=== PATIENT | female | born 1995 | race Caucasian/White ===

== ENCOUNTER 2021-10-27 14:16 | Inpatient (IN) | payer OTHER ==
[2021-10-27] MEDS ORDERED: CARBOPROST TROMETHAMINE 250 MCG/ML 1 ML AMP IM PRN (15:53)
[2021-10-27] MEDS ORDERED: LIDOCAINE 0.5% (PF) 5 MG/ML (50 ML SDV) SQ PRN (15:53)
[2021-10-27] MEDS ORDERED: OXYTOCIN 10 UNIT/ML 1 ML VIAL IM PRN (15:53)
[2021-10-27] MEDS ORDERED: METHYLERGONOVINE 0.2 MG/ML 1 ML AMP IM PRN (15:53)
[2021-10-27] MEDS ORDERED: TERBUTALINE 1 MG/ML VIAL SQ PRN (15:53)
[2021-10-27] MEDS ORDERED: OXYTOCIN 30 UNITS/500 ML NS 30 UNIT in SALINE 1 500ML.BAG IV SCH (16:00)
[2021-10-27] MEDS: LACTATED RINGERS 1,000 ML IV SCH ×2 (16:23→17:21)
[2021-10-27 16:59] LABS: Basophils # (A) 0.1 k/uL (0-0.2); Basophils % (A) 0 %; Eosinophils # (A) 0.1 k/uL (0-0.7); Eosinophils % (A) 0 %; HCT 35.1 % (34.0-46.0); HGB 11.4 gm/dL (11.4-16.0); Hypochromasia Slight; Lymphocytes # (A) 2.1 k/uL (1.0-4.8); Lymphocytes % (A) 15 %; MCH 27.8 pg (25.0-35.0); MCHC 32.5 g/dL (31.0-37.0); MCV 85.6 fL (80.0-100.0); Mean Platelet Volume 8.5; Monocytes # (A) 0.7 k/uL (0-1.0); Monocytes % (A) 5 %; Neutrophils # (A) 10.9 k/uL (1.3-7.7); Neutrophils % (A) 77 %; Platelet Count 351 k/uL (150-450); RDW 15.6 % (11.5-15.5)
[2021-10-27] MEDS ORDERED: SODIUM CHLORIDE 0.9% 100 ML BAG ONE (17:30)
[2021-10-27] MEDS ORDERED: fentaNYL (PF) 50 MCG/ML 5 ML AMP ONE (17:30)
[2021-10-27] MEDS ORDERED: ROPIVACAINE 5MG/ML 20ML VIAL ONE (17:30)
--- NOTE | 2021-10-27 18:00 | P.HPOB ---
History of Present Illness H&P Date: 10/27/21 Chief Complaint: Contractions This is a 26-year-old female 1 para 0 at 38-4/7 weeks with an estimated date of confinement of 11/09/2021 who presents with complaints of contractions that began about 10:30 last night and became stronger and more regular. Her care was initially with Dr. Reyes and she transferred to care at 27 weeks. She does have a history of herpes and did have an outbreak at about 26 weeks. She is on no further outbreaks since that time and has been on Valtrex for suppression. labs: Cystic fibrosis-negative Syphilis screen-negative HIV-nonreactive Rubella-immune Antibody screen-negative Blood type-O- Random glucose-104 Hepatitis B surface antigen-negative Urine drug screen-negative Hemoglobin-13.5 GC/chlamydia-negative One hour Glucola-150 Three-hour Glucola-within normal limits Group B streptococcus-negative RhoGAM was given at 31 weeks. Obstetrical history: . Review of Systems Constitutional: Denies chills, Denies fever Eyes: denies blurred vision, denies pain Ears, nose, mouth and throat: Denies headache, Denies sore throat Cardiovascular: Denies chest pain, Denies shortness of breath Respiratory: Denies cough Gastrointestinal: Reports abdominal pain (Contractions) Genitourinary: Reports pelvic pain, Reports Musculoskeletal: Reports low back pain Integumentary: Denies pruritus, Denies rash Neurological: Denies numbness, Denies weakness Psychiatric: Reports anxiety Past Medical History Past Medical History: No Reported History History of Any Multi-Drug Resistant Organisms: None Reported Past Surgical History: No Surgical Hx Reported Past Anesthesia/Blood Transfusion Reactions: No Reported Reaction Past Psychological History: Anxiety Smoking Status: Never smoker Past Alcohol Use History: None Reported Past Drug Use History: None Reported - Past Family History Mother Family Medical History: Eye Disorder Father Additional Family Medical History / Comment(s): hypercholesterolemia Medications and Allergies Home Medications Medication Instructions Recorded Confirmed Type Vit No.179/Iron/Folic 1 tab PO DAILY 10/27/21 10/27/21 History [ Tablet] valACYclovir HCL [Valtrex] 500 mg PO DAILY 10/27/21 10/27/21 History Allergies Allergy/AdvReac Type Severity Reaction Status Date / Time No Known Allergies Allergy Verified 10/27/21 15:15 Exam Osteopathic Statement: *. No significant issues noted on an osteopathic structural exam other than those noted in the History and Physical/Consult. Vital Signs Temp Pulse Resp BP Pulse Ox 10/27/21 16:35 98.1 F 96 16 130/73 10/27/21 15:57 97.8 F 107 H 16 135/76 97 Intake and Output 10/27/21 10/27/21 10/27/21 06:59 14:59 22:59 Other: Weight 74.389 kg HEENT: Within normal limits Heart: Regular rate and rhythm Lungs: Clear to auscultation bilaterally Abdomen: Cervix: Initially is 4 cm/80%/-2 station. She did make change to 5 cm in triage. She is currently 6 cm/90%/-2 station area artificial rupture membranes is carried out with clear fluid noted. heart tones: Reactive, category 1 Contractions: Approximately 4-5 minutes apart. Extremities: Negative Homans Results Result Diagrams: 10/27/21 16:15 Abnormal Lab Results - Last 24 Hours (Table) 10/27/21 Range/Units 16:15 WBC 14.0 H (3.8-10.6) k/uL RDW 15.6 H (11.5-15.5) % Neutrophils # 10.9 H (1.3-7.7) k/uL Assessment and Plan (1) 38 weeks gestation of Current Visit: Yes Status: Acute Code(s): Z3A.38 - 38 WEEKS GESTATION OF SNOMED Code(s): 90418796 Plan: Admit for active labor. Epidural anesthesia. Expectant management. Oxytocin augmentation of labor if necessary.
--- NOTE | 2021-10-28 02:39 | P.PROBDLV ---
Vaginal Delivery Note - . Vaginal Delivery Note: The patient progressed to complete dilation after artificial rupture membranes with clear fluid noted and oxytocin augmentation of labor. She began pushing and pushed for approximately an hour and 45 minutes. taking to a crown. With one further push, the 's head delivered across the perineum followed by the anterior shoulder. Nose and mouth were bulb suctioned. With one further push, the remainder the infant easily delivered reducing nuchal cord times one around the body with delivery. was placed on mother's abdomen. Nose and mouth were again bulb suctioned. Cord was allowed to pulsate for a few minutes and then cord was clamped and cut. Infant was taken to warmer for evaluation. A viable female infant is noted with scores of 9 at 1 minute and 9 at 5 minutes and weight of 7 lbs. 9 oz. Placenta delivered shortly the reafter, intact, with a three-vessel cord. Uterus initially contracted fairly well after oxytocin was given and uterine massage was carried out. Inspection of the perineum revealed a second degree perineal laceration with a partial third-degree extension. These areas were anesthetized with 1% lidocaine. The repair was sutured with 2-0 Vicryl suture on the rupture on the rectal sphincter capsule in interrupted fashion. The remainder the repair was repaired in the normal multilayer fashion using 3-0 and 2-0 Vicryl suture. There was one area on the left side of the hymenal ring that was bleeding and was also anesthetized with 1% lidocaine and sutured with 3-0 Vicryl suture in interrupted [id number] stitch. She was still noting some oozing and therefore gloved hand was placed within the endometrial cavity. There was a piece of membrane that was removed and then bleeding did slow. Bladder was also drained with a straight cath. Estimated blood loss was approximately 500 mL's. Mother and infant are in stable condition.
[2021-10-28] MEDS ORDERED: SIMETHICONE 80 MG CHEWABLE PO PRN (02:49)
[2021-10-28] MEDS ORDERED: LANOLIN CREAM 5 GM TUBE TOPICAL PRN (02:49)
[2021-10-28] MEDS ORDERED: diphenhydrAMINE 25 MG CAP PO PRN (02:49)
[2021-10-28] MEDS ORDERED: BENZOCAINE/MENTHOL SPRAY 1 GM/SPRAY AEROSOL TOPICAL PRN (02:49)
[2021-10-28] MEDS ORDERED: diphenhydrAMINE 50 MG/ML 1 ML VIAL IVP PRN ×2 (02:49)
[2021-10-28] MEDS ORDERED: ZOLPIDEM 5 MG TAB PO PRN (02:49)
[2021-10-28] MEDS ORDERED: HYDROCORTISONE 2.5% RECTAL CREAM 30 GM TUBE RECTAL PRN (02:49)
[2021-10-28] MEDS ORDERED: diphenhydrAMINE 50 MG CAP PO PRN (02:49)
[2021-10-28] MEDS ORDERED: OXYTOCIN 30 UNITS/500 ML NS 30 UNIT in SALINE 1 500ML.BAG IV SCH (03:00)
[2021-10-28] MEDS: IBUPROFEN 600 MG TAB PO PRN ×4 (03:26→22:23)
[2021-10-28] MEDS: ACETAMINOPHEN TAB 325 MG TAB PO PRN ×3 (06:12→18:10)
[2021-10-28] MEDS: SENNOSIDES-DOCUSATE SODIUM 1 EACH TAB PO SCH ×2 (08:53→22:21)
[2021-10-28] MEDS: valACYclovir HCL 500 MG TAB PO SCH (08:53)
[2021-10-28] MEDS ORDERED: [UNRECOGNIZED DRUG - REMARK] PO SCH (09:00)
[2021-10-28] MEDS: PRENATAL VIT-IRON-FOLIC ACID 1 EACH TABLET PO SCH (09:12)
[2021-10-29] MEDS: IBUPROFEN 600 MG TAB PO PRN ×3 (05:37→19:43)
[2021-10-29 07:31] LABS: Anisocytosis Slight; Basophils # (A) 0.1 k/uL (0-0.2); Basophils % (A) 0 %; Eosinophils # (A) 0.2 k/uL (0-0.7); Eosinophils % (A) 1 %; HCT 25.2 % (34.0-46.0); Hypochromasia Slight; Lymphocytes # (A) 2.8 k/uL (1.0-4.8); Lymphocytes % (A) 20 %; MCH 27.7 pg (25.0-35.0); MCV 86.5 fL (80.0-100.0); Mean Platelet Volume 8.4; Monocytes # (A) 0.6 k/uL (0-1.0); Monocytes % (A) 4 %; Neutrophils # (A) 10.1 k/uL (1.3-7.7); Neutrophils % (A) 72 %; Platelet Count 249 k/uL (150-450); RBC 2.91 m/uL (3.80-5.40); RDW 16.3 % (11.5-15.5); WBC 13.9 k/uL (3.8-10.6)
[2021-10-29 07:36] LABS: HGB 8.1 gm/dL (11.4-16.0)
[2021-10-29] MEDS: SENNOSIDES-DOCUSATE SODIUM 1 EACH TAB PO SCH ×2 (08:15→20:05)
[2021-10-29] MEDS: valACYclovir HCL 500 MG TAB PO SCH (08:15)
[2021-10-29] MEDS: PRENATAL VIT-IRON-FOLIC ACID 1 EACH TABLET PO SCH (08:15)
--- NOTE | 2021-10-29 08:39 | P.PNOBGVD ---
Subjective - Subjective Principal diagnosis: Status post vaginal delivery day #1 Interval history: Patient is doing okay. Baby is on a bili light. She is bottlefeeding. Lochia has been decreasing. Her pain is fairly well controlled. Patient reports: Reports appetite normal, Reports voiding normally, Reports pain well controlled, Reports ambulating normally : bottle feeding Objective - Latest Vital Signs Latest vital signs: Vital Signs Temp Pulse Resp BP Pulse Ox 10/28/21 22:26 97.8 F 77 16 96/61 99 10/28/21 16:00 97.7 F 79 16 101/65 100 - Exam Extremities: Present: normal. Absent: tenderness, edema Abdomen: Present: normal appearance, soft. Absent: distention, tenderness Uterus: Present: normal, firm. Absent: tenderness - Labs Labs: Abnormal Lab Results - Last 24 Hours (Table) 10/29/21 Range/Units 07:00 WBC 13.9 H (3.8-10.6) k/uL RBC 2.91 L (3.80-5.40) m/uL Hgb 8.1 L D (11.4-16.0) gm/dL Hct 25.2 L (34.0-46.0) % RDW 16.3 H (11.5-15.5) % Neutrophils # 10.1 H (1.3-7.7) k/uL Assessment and Plan Assessment: Status post vaginal delivery day #1 Blood loss anemia (1) 38 weeks gestation of Current Visit: Yes Status: Acute Code(s): Z3A.38 - 38 WEEKS GESTATION OF SNOMED Code(s): 75172098 Plan: We'll continue to monitor today. She currently has no symptoms of her anemia. Will recheck CBC tomorrow.
[2021-10-29] MEDS: ACETAMINOPHEN TAB 325 MG TAB PO PRN (23:05)
[2021-10-30] MEDS: IBUPROFEN 600 MG TAB PO PRN (02:10)
[2021-10-30 07:24] LABS: Anisocytosis Slight; Basophils # (A) 0.1 k/uL (0-0.2); Basophils % (A) 0 %; Eosinophils # (A) 0.2 k/uL (0-0.7); Eosinophils % (A) 2 %; HCT 25.3 % (34.0-46.0); Hypochromasia Moderate; Lymphocytes # (A) 2.2 k/uL (1.0-4.8); Lymphocytes % (A) 18 %; MCH 27.2 pg (25.0-35.0); MCHC 31.4 g/dL (31.0-37.0); MCV 86.7 fL (80.0-100.0); Mean Platelet Volume 7.9; Monocytes # (A) 0.5 k/uL (0-1.0); Monocytes % (A) 4 %; Neutrophils # (A) 8.7 k/uL (1.3-7.7); Neutrophils % (A) 74 %; Platelet Count 264 k/uL (150-450); RBC 2.92 m/uL (3.80-5.40); RDW 16.2 % (11.5-15.5); WBC 11.8 k/uL (3.8-10.6)
[2021-10-30] MEDS: ACETAMINOPHEN TAB 325 MG TAB PO PRN (07:37)
[2021-10-30] MEDS: SENNOSIDES-DOCUSATE SODIUM 1 EACH TAB PO SCH (07:38)
[2021-10-30] MEDS: valACYclovir HCL 500 MG TAB PO SCH (08:07)
[2021-10-30] MEDS: PRENATAL VIT-IRON-FOLIC ACID 1 EACH TABLET PO SCH (08:07)
--- NOTE | 2021-10-30 08:52 | P.DS ---
Providers Date of admission: 10/27/21 16:04 Expected date of discharge: 10/30/21 Attending physician: Siri Carlos Primary care physician: Stated None - Discharge Diagnosis(es) (1) 38 weeks gestation of Current Visit: Yes Status: Acute Hospital Course: This is a 26-year-old female 1 para 0 at 38-4/7 weeks who presented in active labor. She delivered vaginally a viable female infant on 10/28/2021 with scores of 9 at 1 minute and 9 at 5 minutes and weight of 7 lbs. 9 oz. She did have a partial third-degree laceration that was repaired. She did have some anemia down to about 8. She has been asymptomatic with this. Her pain is fairly well controlled. Lochia is minimal. Baby is bottle feeding. Vital signs are stable. Abdomen is soft with fundus firm and nontender. Extremities show negative Homans. Impression is status post vaginal delivery day #2. Plan is to discharge home today. Routine instructions are given. She will be given a prescription for ibuprofen. She is advised that she can take Slow Fe along with her vitamin at home. Encouraged to continue stool softeners as needed. Procedures: Oxytocin augmentation of labor. Spontaneous vaginal delivery of a viable female on 10/28/2021 Patient Condition at Discharge: Stable Plan - Discharge Summary New Discharge Prescriptions: New Ibuprofen [Motrin] 600 mg PO Q6HR PRN #60 tab PRN Reason: Mild Pain (Scale 1 To 3) Continue valACYclovir HCL [Valtrex] 500 mg PO DAILY Vit No.179/Iron/Folic [ Tablet] 1 tab PO DAILY Discharge Medication List Vit No.179/Iron/Folic [ Tablet] 1 tab PO DAILY 10/27/21 [History] valACYclovir HCL [Valtrex] 500 mg PO DAILY 10/27/21 [History] Ibuprofen [Motrin] 600 mg PO Q6HR PRN #60 tab 10/30/21 [Rx] Follow up Appointment(s)/Referral(s): Siri Carlos DO [Doctor of Osteopathic Medicine] - 6 Weeks Activity/Diet/Wound Care/Special Instructions: Instructions 1. Do not begin any exercise program for 3 weeks. 2. Do not resume sexual relations for 3 weeks or longer if uncomfortable. 3. You may take tub baths or showers at any time. 4. You may use tampons if desired after 3 weeks. 5. Keep the area of episiotomy (stitches) clean and dry. 6. If you are not nursing, wear a good fitting, supportive bra during the day and limit fluid intake for at least 1 week to prevent breast engorgement. 7. Call the office, [phone], within the next week to make appointment for your 6 week checkup if it has not already been made. 8. Report any of the following occurrences to the doctor promptly: a. Heavy, excessive bleeding b. Chills, fever c. Burning or frequency of urination d. Pain or redness and breasts if nursing e. Increasing pain or swelling in episiotomy (stitches). In addition to the above instructions, the following additional should be followed: 1. No heavy lifting or straining (exercising) until after 6 week checkup. 2. Keep abdominal incision clean and dry: You may wear a dressing if more comfortable. 3. Make office appointment for 10 days after going home or as instructed by her doctor. Discharge Disposition: HOME SELF-CARE
[2021-10-30 09:04] VITALS: BP 121/80; PULSE 69; RESP 18; TEMP 98
--- NOTE | 2021-10-31 13:17 | P.MSEPDOC ---
Presenting Problems - Arrival Data Date of Arrival on Unit: 10/27/21 Time of Arrival on Unit: 15:51 Mode of Transport: Ambulatory - Complaint OB-Reason for Admission/Chief Complaint: Possible Onset of Labor Medical History - Information : 1 Para: 0 Term: 0 : 0 Abortions: Spontaneous or Elective: 0 Number of Living Children: 0 - Gestational Age Gestational Age by DULCE (wks/days): 38 Weeks and 5 Days - History Sexually Transmitted Diseases: HSV Review of Systems - Review of Systems Constitutional: No problems Breast: No problems ENT: No problems Cardiovascular: No problems Respiratory: No problems Gastrointestinal: No problems Genitourinary: No problems Musculoskeletal: No problems Neurological: No problems Skin: No problems Vital Signs - Temperature Temperature: 98.0 F Temperature Source: Oral - Pulse Right Sitting Pulse Rate: 69 Pulse Assessment Method: Pulse Oximetry - Respirations Respiratory Rate: 18 Oxygen Delivery Method: Room Air O2 Sat by Pulse Oximetry: 99 - Blood Pressure Right Arm Blood Pressure: 121/80 Blood Pressure Mean: 93 Blood Pressure Source: Automatic Cuff Medical Screen Scoring - Cervical Exam Dilation (cm): 5 Effacement (%): 80 Station: -2 Membranes: Intact - Uterine Contractions Frequency From (mins): 3 Frequency To (mins): 8 Duration From (seconds): 60 Duration To (seconds): 70 Intensity: Moderate Resting: Soft to palpation - Assessment - Baby A Baseline FHR: 135 Heart Rate - NICHD Category: Category I (Normal) NST: Reactive Physician Notification - Physician Notified Physician Notified Date: 10/27/21 Physician Notified Time: 15:51 Physician: Siri Carlos Order Received: Yes (admit) Maternal Triage Index - Prompt/Priority 3 Prompt Priority 3: Yes Criteria Met for Priority 3: reactive nst, contractions 3-8 minutes, change in cervix after 1 hour Disposition - Disposition OB Disposition: Admit, LDRP Suite Discharge Date: 10/30/21 Discharge Time: 10:30 I agree with the RN Medical Screening Exam: Yes Case reviewed; plan agreed upon as documented in EMR&OBIX.: Yes Diagnosis: ENCOUNTER FOR FULL-TERM UNCOMPLICATED DELIVERY
== END 2021-10-30 11:12 | disposition home or self-care (01) | DRG 768 ==
LOC: FBPOP 14:16 → 4FBP 16:04
PROVIDERS: ADMIT Obstetrics & Gynecology; ATTEND Obstetrics & Gynecology
PROC: 0DQR0ZZ Repair Anal Sphincter, Open Approach (ICD-10-PCS; 2021-10-28)
PROC: 10E0XZZ Delivery of Products of Conception, External Approach (ICD-10-PCS; principal; 2021-10-30)
DX: O69.81X0 Labor and delivery complicated by cord around neck, without compression, not applicable or unspecified (principal); Z37.0 Single live birth; O98.32 Other infections with a predominantly sexual mode of transmission complicating childbirth; O70.20 Third degree perineal laceration during delivery, unspecified; D50.0 Iron deficiency anemia secondary to blood loss (chronic); A63.8 Other specified predominantly sexually transmitted diseases; O90.81 Anemia of the puerperium; F41.9 Anxiety disorder, unspecified; O99.344 Other mental disorders complicating childbirth; Z3A.38 38 weeks gestation of pregnancy; Z3A.26 26 weeks gestation of pregnancy; Z86.19 Personal history of other infectious and parasitic diseases; Z79.899 Other long term (current) drug therapy; Z83.42 Family history of familial hypercholesterolemia
CPT/HCPCS: 59025; 85025; 86850; 86870; 86880; 86900; 86901; 86902; 99213